=== PATIENT | female | born 1940 | race African-American/Black ===

== ENCOUNTER 2025-01-31 22:15 | Inpatient (IN) | payer MEDICARE, MEDICAID ==
[~2025-01-31] VITALS: Ht 165.1 cm; Wt 58.1 kg
[~2025-01-31 22:15] MED LIST: BRIM15DR8 EACHEYE; DORZ1DRO12 EACHEYE; KETO5DRO38 EACHEYE; QUET25TA MT
[2025-01-31 22:19] VITALS: O2SAT 100
[2025-02-01 00:22] LABS: BASOPHILS % 0.4 % (0.0-2.0); EOSINOPHILS % 1.2 % (0.0-5.0); HEMATOCRIT. 35.9 % (36.0-48.0); HEMOGLOBIN. 11.4 g/dL (12.0-16.0); LYMPHOCYTES % 33.2 % (20.0-50.0); MEAN CORPUSCULAR HEMOGLOBIN 27.8 pg (28.0-32.0); MEAN CORPUSCULAR HGB CONC 31.9 g/dL (31.0-37.0); MEAN CORPUSCULAR VOLUME 87.4 fL (81.0-99.0); MEAN PLATELET VOLUME 8.3 fl (7.4-10.4); NEUTROPHILS % 57.2 % (40.0-76.0); PLATELET 195 x1000/uL (130-400); RED BLOOD CELL COUNT 4.11 mill/uL (4.2-5.4); RED CELL DISTRIBUTION WIDTH 15.4 % (11.6-14.6); WHITE BLOOD COUNT 7.9 x1000/uL (4.5-11.0)
[2025-02-01 00:30] LABS: PARTIAL THROMBOPLASTIN TIME < 21.0 sec (23.4-31.0); PROTHROMBIN TIME 11.1 sec (9.6-11.0)
[2025-02-01 00:37] LABS: AMMONIA < 17 uMol/L (<32)
[2025-02-01 00:52] LABS: CHLORIDE 107 mEq/L (98-107); POTASSIUM 3.9 mEq/L (3.5-5.1); SODIUM 142 mEq/L (136-145)
[2025-02-01 00:53] LABS: CARBON DIOXIDE 22 mEq/L (21-32)
[2025-02-01 00:58] LABS: CREATININE 1.1 mg/dL (0.6-1.0); GLUCOSE 89 mg/dL (70-105); UREA NITROGEN BLOOD 13 mg/dL (9-23)
[2025-02-01 00:59] LABS: ETHANOL BLOOD < 10 mg/dL (<10)
[2025-02-01 01:02] LABS: THYROID STIMULATING HORMONE 2.35 uIU/mL (0.55-4.78)
[2025-02-01 01:08] LABS: TROPONIN I HIGH SENSITIVITY < 4 ng/L (3.0-34)
[2025-02-01] MEDS: SODIUM CHLORIDE 0.9% 250 ML IV ONE (02:46)
[2025-02-01 04:00] VITALS: BP 146/51; PULSE 68; RESP 18; TEMP 35.8; O2SAT 100
[2025-02-01] MEDS ORDERED: DIPHENHYDRAMINE 50MG/ML VIAL IV PRN (04:45)
[2025-02-01] MEDS ORDERED: CLONIDINE 0.1MG TABLET PO PRN (04:45)
[2025-02-01] MEDS ORDERED: ACETAMINOPHEN 325MG TABLET PO PRN ×2 (04:45)
[2025-02-01] MEDS ORDERED: MAGNESIUM/ALUMINUM HYDROXIDE/SIMETHICONE 30ML UDC PO PRN (04:45)
[2025-02-01] MEDS ORDERED: ONDANSETRON HCL 4MG/2ML INJ IV PRN (04:45)
[2025-02-01 05:27] VITALS: BP 146/51; PULSE 68; RESP 18; TEMP 35.8
[2025-02-01] MEDS: SODIUM CHLORIDE 0.9% 3ML FLUSH IVF SCH (06:02)
[2025-02-01 08:00] VITALS: BP_SYST 144; BP_DIAS 63; BP_DIAS 66; PULSE 63; RESP 17; RESP 18; TEMP 36.1; O2SAT 95
[2025-02-01] MEDS: BRIMONIDINE 0.2% OPHTH DROPS 5ML BOTHEYE SCH (09:23)
[2025-02-01] MEDS: ENOXAPARIN 30MG/0.3ML SYR SUBCUT SCH (09:23)
[2025-02-01] MEDS: KETOROLAC TROM 0.5% 5ML BOTTLE BOTHEYE SCH (09:23)
[2025-02-01] MEDS: DORZOLAM/TIMOLOL 2%/0.5% OPHTH DROPS 10ML BOTHEYE SCH (09:23)
[2025-02-01 12:00] VITALS: BP 145/53; PULSE 64; RESP 16; TEMP 36.1; O2SAT 95
== END 2025-02-01 14:35 | disposition home or self-care (01) | DRG 72 ==
LOC: ER 22:15 → 5WST 02-01 01:04 → EDBEDREQTM 02-01 01:12 → EDBEDREQ 02-01 01:12 → EDBEDREQDT 02-01 01:12 → ENRESERV 02-01 01:35
PROVIDERS: ADMIT Internal Medicine; ATTEND Internal Medicine
DX: G93.41 Metabolic encephalopathy (principal); F03.90 Unspecified dementia, unspecified severity, without behavioral disturbance, psychotic disturbance, mood disturbance, and anxiety; H40.9 Unspecified glaucoma; I95.9 Hypotension, unspecified
CPT/HCPCS: 36415; 71045; 80048; 80320; 82140; 83880; 84443; 84484; 85025; 93005; 99285; J1650; J7050; G0480